=== PATIENT | female | born 1955 ===

== ENCOUNTER 2019-12-16 05:15 | Day surgery (SDC) | payer OTHER | END 2019-12-16 18:45 | disposition home or self-care (01) | LOC: CIR.AMB 05:15 → ADM 08:30 → CIR.AMB 12:15 | PROVIDERS: ATTEND Orthopaedic Surgery Hand Surgery | DX: S52.532A Colles' fracture of left radius, initial encounter for closed fracture (principal); Z20.828 Contact with and (suspected) exposure to other viral communicable diseases ==